=== PATIENT | female | born 1985 | race Caucasian/White ===

== ENCOUNTER 2022-11-05 07:43 | Day surgery (SDC) | payer BC ==
[2022-10-29 11:10] LABS: BASOPHILS % (AUTO) 0.6 % (0-1); EOSINOPHILS % (AUTO) 0.7 % (0-6); HEMATOCRIT 41.2 % (35.0-45.0); HEMOGLOBIN 13.7 g/dl (12.0-16.0); LYMPHOCYTES # (AUTO) 1.5 X10'3 (1.1-4.8); LYMPHOCYTES % (AUTO) 27.5 % (21-51); MEAN CORPUSCULAR HEMOGLOBIN 30.6 PG (27.0-31.0); MEAN CORPUSCULAR HGB CONC 33.3 g/dL (33.0-36.5); MEAN CORPUSCULAR VOLUME 91.9 FL (78-98); MEAN PLATELET VOLUME 8.5 FL (7.4-10.4); MONOCYTES # (AUTO) 0.4 X10'3 (0-0.9); MONOCYTES % (AUTO) 8.4 % (2-12); NEUTROPHILS # (AUTO) 3.4 X10'3 (1.8-7.7); NEUTROPHILS % (AUTO) 62.8 % (42-75); PLATELET COUNT 165 X10'3 (140-440); RED BLOOD COUNT 4.48 X10'6 (4.20-5.60); RED CELL DISTRIBUTION WIDTH 13.4 % (11.5-14.5); WHITE BLOOD COUNT 5.4 X10'3 (4.5-11.0)
[2022-10-29 11:22] LABS: HCG SERUM QL NEGATIVE
[2022-10-29 11:32] LABS: ALBUMIN 3.8 G/DL (3.4-5.0); ALBUMIN/GLOBULIN RATIO 1.2 (1.1-1.5); ALKALINE PHOSPHATASE 36 IU/L (46-116); BLOOD UREA NITROGEN 20 MG/DL (7-18); BUN/CREATININE RATIO 23.5 (10.0-20.0); CALCIUM 8.9 MG/DL (8.5-10.1); CHLORIDE 106 MMOL/L (99-107); CREATININE 0.85 MG/DL (0.40-0.90); PRE OP ALT 17 U/L (30-65); PRE OP ANION GAP 8 (8-16); PRE OP AST 17 U/L (10-37); PRE OP BILIRUB, TOTAL 0.4 MG/DL (0.0-1.0); PRE OP GLUCOSE 97 MG/DL (70-104); PRE OP POTASSIUM 4.6 MMOL/L (3.4-5.1); PRE OP SODIUM 139 MMOL/L (135-145); TOTAL CARBON DIOXIDE 25.3 MMOL/L (24-32); eGFR 75 ML/MIN
[~2022-11-05] VITALS: Ht 170.2 cm; Wt 74.8 kg
[2022-11-05] VITALS (7 sets, daily range): BP systolic 110–123; BP diastolic 69–75; PULSE 50–63; RESP 12–16; TEMP 98.7; O2SAT 96–100
[~2022-11-05 07:43] MED LIST: NO HOME MEDS; cefazolin 2gm/D5W 100mL 100 ML IV ONE; famotidine 20mg tablet PO ONE; ringers solution, lacted 1,000 ML IV SCH
[2022-11-05] MEDS ORDERED: LIDOcaine 1% (10mg/ml) 2ml vial ONE (08:21)
[2022-11-05] MEDS ORDERED: LIDOcaine 1% 30ml preserv. free vial ONE (09:49)
[2022-11-05] MEDS ORDERED: BUPIVAcaine/PF 2.5 mg/ml (0.25%) 30ml vial ONE (09:49)
[2022-11-05] MEDS ORDERED: sevoflurane 250ml liquid IH ONE (09:58)
[2022-11-05] MEDS ORDERED: midazolam 1 mg/ML 2ml injection ONE (10:00)
[2022-11-05] MEDS ORDERED: fentaNYL/PF 50MCG/1 ML 2ML syringe ONE (10:00)
[2022-11-05] MEDS ORDERED: ondansetron/PF 4mg/2ml inj IV PRN (10:45)
[2022-11-05] MEDS ORDERED: morphine 4 MG/ML inj SYRINge IV PRN (10:45)
[2022-11-05] MEDS ORDERED: morphine 2 MG/ML inj. syringe IV PRN (10:45)
[2022-11-05] MEDS ORDERED: meperidine/PF 25mg/ml syringe IV PRN ×3 (10:45)
[2022-11-05] MEDS ORDERED: ringers solution, lacted 1,000 ML IV SCH (10:45)
[2022-11-05] MEDS ORDERED: proCHLORperazine 10 MG/2 ml inj IV PRN (10:45)
[2022-11-05] MEDS ORDERED: rocuronium 10mg/ml inj IV ONE (10:53)
[2022-11-05] MEDS ORDERED: dexamethasone sod phosphate 4mg/ml inj. ONE (10:54)
[2022-11-05] MEDS ORDERED: propofol inj 20 ML IV ONE (10:54)
[2022-11-05] MEDS ORDERED: ondansetron/PF 4mg/2ml inj ONE (10:54)
[2022-11-05] MEDS ORDERED: acetaminophen 1,000mg/100ml IV 100 ML IV ONE (10:55)
[2022-11-05] MEDS ORDERED: sugammadex 200mg/2ml injection IV ONE (10:58)
--- NOTE | 2022-11-05 11:15 | NUR ---
Received from OR via [facility] IN STABLE CONDITION , accompanied by Anesthesiologist and DERRICK BOAT LEVERMAN report given by DERRICK BOAT LEVERMAN AND Anesthesiolgist. Addendum: 11/05/22 at 1130 by Anila Llanos RN Amended: Links added.
[2022-11-05] MEDS ORDERED: HYDROcodone/acetaminophen 5mg/325mg tablet PO PRN (11:30)
--- NOTE | 2022-11-05 12:35 | NUR ---
PATIENT DISCHARGED FROM PACU IN STABLE CONDITION AFTER WRITTEN AND VERBAL DISCHARGE INSTRUCTIONS GIVEN. PATIENT GAVE VERBAL UNDERSTANDING OF INSTRUCTIONS GIVEN. PATIENT LEFT FACILITY VIA WHEELCHAIR WITH RN. Addendum: 11/05/22 at 1240 by Anila Llanos RN Amended: Links added.
== END 2022-11-05 12:35 | disposition home or self-care (01) ==
LOC: PAS 07:43
PROVIDERS: ATTEND Surgery
DX: K40.90 Unilateral inguinal hernia, without obstruction or gangrene, not specified as recurrent (principal); Z88.2 Allergy status to sulfonamides; Z79.899 Other long term (current) drug therapy
CPT/HCPCS: 36415; 49650; 80053; 82948; 84703; 85025; C1781; J0131; J0690; J1100; J2175; J2250; J2405; J2704; J3010; J3490; J7030; J7120; S2900; Z7506; Z7508; Z7512; A4215; A4618